=== PATIENT | male | born 1945 | race Caucasian/White ===

== ENCOUNTER 2017-04-19 05:41 | Outpatient (CLI) | payer MEDICARE, OTHER ==
[~2017-04-19] VITALS: Ht 188 cm; Wt 88.5 kg
[~2017-04-19 05:41] MED LIST: ASP81TEC PO; DIPH25TA82 PO; ERGO400C PO; FEXO-14 PO; FLUT16SP22 NS; FLUV80TA PO; LRT10T PO; MULT-974 PO; OXYC-12 PO; ROSU5TAB PO; UBID100C17 PO
[2017-04-19] MEDS ORDERED: LORA10TA7 PO (10:42)
[2017-04-19] MEDS ORDERED: MULT1CAP27 PO (10:42)
[2017-04-19] MEDS ORDERED: ROSU5TAB11 PO (10:42)
[2017-04-19] MEDS ORDERED: DIPH25TA31 PO (10:42)
[2017-04-19] MEDS ORDERED: UBID100C27 PO (10:42)
== END 2017-04-19 10:45 ==
LOC: PREOP 05:41
PROVIDERS: ATTEND Internal Medicine
DX: Z01.818 Encounter for other preprocedural examination (principal); Z86.010 Personal history of colon polyps

== ENCOUNTER 2017-04-20 09:02 | Day surgery (SDC) | payer MEDICARE, OTHER ==
--- NOTE | 2017-04-18 20:21 | HISTORY AND PHYSICAL ---
DATE OF SERVICE: PROCEDURE: Screening colonoscopy. HISTORY OF PRESENT ILLNESS: The patient is a 71-year-old white male, who last underwent colonoscopy 5 years ago. At that time, he had two adenomatous polyps and is going to be undergoing surveillance colonoscopy on 04/20/2017. He reports that he feels well. He has been exercising again and weight is down about 16 pounds from last year. He denies any bowel habit change. No constipation, diarrhea, abdominal pain, melena or bright red blood per rectum. PAST MEDICAL HISTORY: Significant for obstructive sleep apnea for which he is on CPAP and type 2A hyperlipidemia for which he takes 5 mg of Crestor daily. He is on no other prescription medication. He does take Coenzyme Q10 and does not take aspirin or nonsteroidal medication. PAST SURGICAL HISTORY: He had a tonsillectomy as a child with no other significant past surgical history. 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 He has a 20+ pack year smoking history, but quit in 1986. He has a glass of wine with occasional meals, not on a regular basis. FAMILY HISTORY: He is not aware of any family history for GI tract malignancy. His father did at the age of 56 of heart attack. He was obese and a heavy smoker. Mother in her late 80s, had diverticulitis with perforation. He has 3 siblings hypertension, no other health problems. PHYSICAL EXAMINATION: GENERAL: Reveals a well-appearing white male, who has just come from a run. VITAL SIGNS: Blood pressure was 104/60, heart rate 70 and regular. HEENT: Unremarkable. He has normocephalic, atraumatic with no evidence for scleral icterus or pallor. NECK: Revealed no JVD, adenopathy or bruits. CHEST: Clear. CARDIOVASCULAR: Regular rate and rhythm without murmur, S3 or S4. ABDOMEN: Soft, supple without mass, organomegaly or tenderness. EXTREMITIES: Reveal no cyanosis, clubbing or edema. ASSESSMENT AND PLAN: 1. The patient was set up for surveillance colonoscopy due to past history of colon polyps as noted above on 04/20/2017. Prep instructions with Suprep kit were given and questions were answered. 2. History of hyperlipidemia. We will be obtaining a lipid panel, BMP and a PSA prior to his June appointment. Job ID: [id number] DocumentID: [id number] Dictated Date: 04/18/2017 19:56:11 After School Caregiver Date: 04/18/2017 20:21:19 Dictated By: FREDDY CALL MD MTDD
[~2017-04-20] VITALS: Ht 188 cm; Wt 88.5 kg
[~2017-04-20 09:02] MED LIST changes: +DIPH25TA31 PO; +LORA10TA7 PO; +MULT1CAP27 PO; +ROSU5TAB11 PO; +UBID100C27 PO
[2017-04-20] MEDS ORDERED: 1/2 NS IV SOLUTION 1,000 ML IV STA (09:11)
[2017-04-20] MEDS ORDERED: MIDAZOLAM 2 MG/2 ML (VERSED) VIAL IVP PRN (09:15)
[2017-04-20] MEDS ORDERED: LIDOCAINE JELLY 2% (XYLOCAINE) 5 ML TUBE MM PRN (09:15)
[2017-04-20] MEDS ORDERED: 1/2 NS IV SOLUTION 1,000 ML IV ONE (09:22)
[2017-04-20 09:33] VITALS: BP 135/74
[2017-04-20] MEDS ORDERED: MIDAZOLAM 2 MG/2 ML (VERSED) VIAL ONE (09:58)
[2017-04-20] MEDS ORDERED: fentaNYL INJECTION 100 MCG/2 ML AMP ONE (09:58)
[2017-04-20] MEDS ORDERED: LIDOCAINE JELLY 2% (XYLOCAINE) 5 ML TUBE ONE (09:59)
--- NOTE | 2017-04-20 10:18 | Pre-Op Note & Conscious Sedat ---
Pre-Operative Progress Note H&P Reviewed The H&P was reviewed, patient examined and no changes noted. Date H&P Reviewed: Apr 20, 2017 Time H&P Reviewed: 10:10 Conscious Sedation Pre-Proced ASA Class: 2 Airway Mallampati Classification: (confederated salish appropriate class) I. II. III, IV Lungs Heart ASA score ASA 1: a normal healthy patient ASA 2: a patient with a mild systemic disease (mid diabetes, controlled hypertension, obesity ASA 3: a patient with a severe systemic disease that limits activity (angina , COPD, prior Myocardial infarction) ASA 4: a patient with an incapacitating disease that is a constant threat to life (CHF, renal failure) ASA 5: a moribund patient not expected to survive 24 hrs. (ruptured aneurysm) ASA 6: a declared brain patient whose organs are being harvested. For emergent operations, add the letter E after the classification Grade 2 Sedation Plan: Analgesia, Amnesia, Plan communicated to team members, Discussed options with patient/fam, Discussed risks with patient/fam Note The patient is an appropriate candidate to undergo the planned procedure, sedation, and anesthesia. The patient immediately re-assessed prior to indication. FREDDY CALL MD Apr 20, 2017 10:18
[2017-04-20] MEDS: fentaNYL INJECTION 100 MCG/2 ML AMP IVP PRN ×2 (10:21→10:35)
[2017-04-20 11:15] VITALS: BP 125/72
[2017-04-20 11:40] VITALS: BP 125/72
[2017-04-20 11:41] VITALS: BP 125/73
--- NOTE | 2017-04-20 20:46 | OPERATIVE REPORT ---
DATE OF SERVICE: COLONOSCOPY SUMMARY INDICATION FOR PROCEDURE: Screening colonoscopy, history of past adenomatous colon and colonic polyps. DESCRIPTION OF PROCEDURE: The patient was placed in the left lateral decubitus position. Prior to undergoing colonoscopy, digital rectal evaluation was performed. Anal sphincter tone was normal and the perianal reflex was intact. No abnormalities, no additional inspection of the anal canal or distal rectal vault. The prostate was mildly enlarged, anodular and nontender to digital inspection. The colonoscope was then inserted into the rectum and under direct visualization advanced to the cecum. The cecum was identified by identification of the ileocecal valve, cecal strap and the appendiceal orifice. Photographic documentation was obtained. Careful inspection was made as the colonoscope was withdrawn. The patient tolerated the procedure well. FINDINGS: There was no evidence for internal or external hemorrhoids and the rectum was unremarkable. Scattered throughout the sigmoid colon where a moderate number of small to medium sized diverticulum without evidence for diverticulitis. No other sigmoid colonic abnormalities were appreciated. The descending colon and splenic flexure were unremarkable. Present in the proximal transverse colon was a diminutive 2 mm sessile polyp. It was photographed and biopsied and ablated with no subsequent blood loss. The remainder of the transverse colon, hepatic flexure and ascending colon were unremarkable. Present in the cecum was a 2 x 3 mm uniformly kendrick appearing polyp. It was biopsied and ablated and submitted for histopathology. ASSESSMENT: 1. Two diminutive polyps were removed, one from the proximal transverse colon and the other one from the cecum without blood loss via hot forceps. As long as there are no surprises on histopathology report, we will advocate consideration for a repeat screening colonoscopy in 5 years. 2. Moderate diverticular disease confined to the sigmoid colon was present, unchanged from 5 year ago without evidence for diverticulitis. 3. Mild BPH on digital evaluation of the prostate. Job ID: [id number] DocumentID: [id number] Dictated Date: 04/20/2017 11:32:26 [place] Operator Date: 04/20/2017 19:50:29 Dictated By: MD BOBBY CAPELLAN
== END 2017-04-20 11:40 | disposition home or self-care (01) ==
LOC: ENDO 09:02
PROVIDERS: ATTEND Internal Medicine
DX: Z12.11 Encounter for screening for malignant neoplasm of colon (principal); D12.3 Benign neoplasm of transverse colon; K63.5 Polyp of colon; K57.30 Diverticulosis of large intestine without perforation or abscess without bleeding; N40.0 Benign prostatic hyperplasia without lower urinary tract symptoms; G47.33 Obstructive sleep apnea (adult) (pediatric); E78.5 Hyperlipidemia, unspecified; Z87.891 Personal history of nicotine dependence; Z79.899 Other long term (current) drug therapy

== ENCOUNTER 2017-10-11 18:59 | Emergency (ER) | payer MEDICARE, OTHER ==
[~2017-10-11] VITALS: Ht 188 cm; Wt 86.2 kg
[~2017-10-11 18:59] MED LIST changes: -ROSU5TAB11 PO; +ROSU5TAB12 PO; -UBID100C27 PO; +UBID100C7 PO
[2017-10-11] MEDS ORDERED: LIDOCAINE 2% 20 ML (XYLOCAINE) VIAL INJ ONE (19:15)
[2017-10-11] MEDS ORDERED: TETANUS,DIPTH,PERTUSS P/F (BOOSTRIX) 0.5 ML VIAL IM ONE (19:15)
[2017-10-11] MEDS ORDERED: LIDOCAINE 1% INJ 20 ML 20 ML VIAL ONE (19:18)
[2017-10-11] MEDS ORDERED: SULF1TAB35 PO (19:31)
--- NOTE | 2017-10-11 19:31 | ED Upper Extremity ---
General Chief Complaint: Foreign Body Stated Complaint: FISHING HOOK STUCK IN THUMB Nursing Triage Note: fish hook right thumb Nursing Sepsis Screen: No Definite Risk Source: patient Exam Limitations: no limitations History of Present Illness Date Seen by Provider: Oct 11, 2017 Time Seen by Provider: 19:14 Initial Comments PT ARRIVES VIA POV HAS TREBLE FISHING HOOK EMBEDDED IN RIGHT THUMB OCCURRED JUST PRIOR TO ARRIVAL NO OTHER INJURIES LAST TETANUS > 5 YEARS Allergies and Home Medications Allergies Coded Allergies: iodine (Unverified Allergy, Unknown, 10/30/13) Home Medications Rosuvastatin Calcium 5 Mg Tablet, 5 MG PO HS, (Reported) Sulfamethoxazole/Trimethoprim 1 Each Tablet, 1 EACH PO BID Prescribed by: KIN RAMOS on 10/11/17 193 Patient Home Medication List Home Medication List Reviewed: Yes Constitutional: no symptoms reported Musculoskeletal: see HPI Skin: see HPI Psychiatric/Neurological: No Symptoms Reported Past Wguidzp-Lcbxvf-Mpowfj Hx Patient Social History Alcohol Use: Denies Use Recreational Drug Use: No Smoking Status: Former Smoker Former Smoker, Quit: Apr 19, 1986 2nd Hand Smoke Exposure: No Recent Foreign Travel: No Contact w/Someone Who Travel: No Recent Infectious Disease Expo: No Recent Hopitalizations: No Immunizations Up To Date Tetanus Booster (TDap): More than 5yrs PED Vaccines UTD: No Date of Pneumonia Vaccine: Dec 17, 2012 Date of Influenza Vaccine: Dec 17, 2016 Seasonal Allergies Seasonal Allergies: Yes Past Medical History Surgeries: Yes (BILATERAL INGUINAL HERNIA REPAIR) Abdominal, Tonsillectomy Respiratory: Yes Sleep Apnea Currently Using CPAP: Yes Currently Using BIPAP: No Cardiac: Yes High Cholesterol Neurological: No Reproductive Disorders: No Sexually Transmitted Disease: No HIV/AIDS: No Genitourinary: No Gastrointestinal: Yes Polyps Musculoskeletal: No Endocrine: No HEENT: No Cancer: No Did You Recieve Any Treatments: No Psychosocial: No Integumentary: No Blood Disorders: No Physical Exam Vital Signs Vital Signs - First Documented 10/11/17 19:05 Temp 98.0 Pulse 50 Resp 18 B/P (MAP) 135/76 (95) Pulse Ox 98 O2 Delivery Room Air Capillary Refill : Less Than 3 Seconds Height, Weight, BMI Height: 6'2.00" Weight: 190lbs. 0.0oz. [id number]; 25.0 BMI Method:Stated General Appearance: WD/WN, no apparent distress Hand: Right (THUMB WITH TREBLE HOOK EMBEDDED IN DISTAL ASPECT OF THUMB. 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 PT TOLERATED WELL Progress/Results/Core Measures Results/Orders My Orders Orders - KIN RAMOS DO Lidocaine 2% Injection 20 Ml (Xylocaine (10/11/17 19:15) Dipht,Pertuss(Acell),Tet Adult (Boostrix (10/11/17 19:15) Lidocaine 1% Inj 20 Ml (Xylocaine 1% Inj (10/11/17 19:18) Wound Dressing-Ed (10/11/17 19:27) Medications Given in ED Current Medications Medications Dose Ordered Sig/Mario Route Start Time Stop Time Status Last Admin Dose Admin Diphtheria/ Tetanus/Acell Pertussis 0.5 ml ONCE ONCE IM 10/11/17 19:15 10/11/17 19:17 DC 10/11/17 19:43 0.5 ML Lidocaine HCl 20 ml ONCE ONCE INJ 10/11/17 19:15 10/11/17 19:17 DC 10/11/17 19:00 20 ML Vital Signs/I&O 10/11/17 10/11/17 19:05 19:44 Temp 98.0 98.0 Pulse 50 50 Resp 18 18 B/P (MAP) 135/76 (95) 135/76 (95) Pulse Ox 98 98 O2 Delivery Room Air Blood Pressure Mean: 95 Departure Impression Primary Impression: Fish hook injury of right thumb Additional Impression: Hohghnroit-xjqichtyt-spqfuks (DPT) vaccination administered at current visit Disposition: 01 HOME, SELF-CARE Condition: Improved Departure-Patient Inst. Referrals: FREDDY CALL MD (PCP) Primary Care Physician Patient Instructions: Diphtheria and Tetanus Toxoids, and Acellular Pertussis Vaccine, Wound Care (DC) Add. Discharge Instructions: SOAK IN WARM SOAPY WATER TWICE A DAY, APPLY ANTIBACTERIAL OINTMENT AND FRESH DRESSING TWICE A DAY TYLENOL AND MOTRIN NEEDED FOR PAIN FOLLOW UP IF PROBLEMS All discharge instructions reviewed with patient and/or family. Voiced understanding. Scripts Sulfamethoxazole/Trimethoprim (Bactrim Ds Tablet) 1 Each Tablet 1 EACH PO BID, #20 TAB Prov: KIN RAMOS DO 10/11/17 KIN RAMOS DO Oct 11, 2017 19:31
[2017-10-11 19:44] VITALS: BP 135/76
== END 2017-10-11 19:45 | disposition home or self-care (01) ==
LOC: EDUNIT# 18:59 → ER 19:00
DX: S60.351A Superficial foreign body of right thumb, initial encounter (principal); G47.30 Sleep apnea, unspecified; E78.00 Pure hypercholesterolemia, unspecified; Z86.010 Personal history of colon polyps; Z23 Encounter for immunization; Z87.891 Personal history of nicotine dependence; Z98.890 Other specified postprocedural states; Z90.89 Acquired absence of other organs; Z91.041 Radiographic dye allergy status; W45.8XXA Other foreign body or object entering through skin, initial encounter
CPT/HCPCS: 90471; 90715; 99284

== ENCOUNTER → 2019-07-24 | Outpatient (CLI) | payer MEDICARE, OTHER ==
[~2019-07-24] MED LIST changes: -ROSU5TAB12 PO; +ROSU5TAB13 PO; +SULF1TAB35 PO
--- NOTE | 2019-07-24 12:42 | Diagnostic Imaging Report ---
INDICATION: Low back pain, no known trauma or injury. EXAMINATION: Lumbar spine from 07/24/2019. FINDINGS: 3 views of the lumbar spine. There is a grade 1 retrolisthesis minimal in nature at L5-S1. Remaining alignment is preserved. Vertebral body heights maintained. Anterior flowing osteophytes noted at T12-L1 and L1-L2. Large osteophytes also seen anteriorly at L2-L3 and L3-L4. Facet hypertrophy noted throughout the lower lumbar region. IMPRESSION: 1. Diffuse multilevel degenerative disease with no acute abnormality appreciated. Dictated by: Dictated on workstation # [id number]
== END ==
LOC: RAD 11:52
DX: M47.26 Other spondylosis with radiculopathy, lumbar region (principal)
CPT/HCPCS: 72100